=== PATIENT | male | born 1955 | race Caucasian/White ===

== ENCOUNTER 2017-03-31 18:27 | Emergency (ER) | payer MEDICAID ==
[~2017-03-31] VITALS: Ht 177.8 cm; Wt 90.7 kg
[2017-03-31 18:36] VITALS: BP 123/83
== END 2017-03-31 20:27 | disposition left against medical advice (07) ==
LOC: EDBD 18:27 → ER 18:29
DX: R07.9 Chest pain, unspecified (principal); Z53.21 Procedure and treatment not carried out due to patient leaving prior to being seen by health care provider
CPT/HCPCS: 93005

== ENCOUNTER 2023-11-21 18:01 | Emergency (ER) | payer MEDICAID, OTHER ==
[~2023-11-21] VITALS: Ht 175.3 cm; Wt 78.0 kg
[2023-11-21 18:30] VITALS: PULSE 85; RESP 28; TEMP 97.8; O2SAT 98
[2023-11-21] MEDS: MORPHINE SULFATE 4 MG/ML SYR/VIAL IV ONE (19:03)
[2023-11-21] MEDS: FAMOTIDINE (10MG/ML) 2ML VL IV ONE (19:43)
[2023-11-21] MEDS: SODIUM CHLORIDE 0.9% 1,000 ML IV ONE (19:43)
[2023-11-21] MEDS: ONDANSETRON HCL 4 MG/2 ML VIAL IV ONE (19:44)
[2023-11-21 19:47] LABS: Basophils # (auto) 0 10 ^3/uL (0-0.2); Basophils % (auto) 0.1 % (0.0-2.0); Eosinophils # (auto) 0 10 ^3/uL (0-0.8); Hemoglobin 14.7 g/dL (13.5-17.5); Lymphocytes % (auto) 9.3 % (10.0-50.0); Mean Corpuscular Hemoglobin 31.3 pg (28.0-32.0); Mean Corpuscular Hgb Conc. 33.4 g/dL (32.0-36.0); Mean Corpuscular Volume 93.7 fL (80.0-100.0); Monocytes # (auto) 0.4 10 ^3/uL (0-1.3); Monocytes % (auto) 3.8 % (0.0-12.0); Neutrophils # (auto) 9.1 10 ^3/uL (1.6-8.6); Neutrophils % (auto) 86.8 % (37.0-80.0); Platelet Count (auto) 237 10^3/uL (140-450); Red Blood Cells 4.69 10^6/uL (4.5-5.90); Red Cell Distribution Width 14.9 % (11.8-14.3); White Blood Cell 10.5 10^3/uL (4.4-10.8)
[2023-11-21 20:04] LABS: Alanine Aminotransferase 20 U/L (7-40); Albumin 4.8 g/dL (3.2-4.8); Alkaline Phosphatase 58 U/L (46-116); Anion Gap 10 (5-15); Aspartate Aminotransferase 16 U/L (13-40); BUN/Creatinine Ratio 14.5 (10.0-20.0); Blood Urea Nitrogen 19 mg/dL (9-23); Calcium 10.9 mg/dL (8.7-10.4); Carbon Dioxide 27 mmol/L (20-30); Chloride 107 mmol/L (98-107); Glucose 208 mg/dL (74-106); Potassium 4.3 mmol/L (3.5-5.1); Sodium 144 mmol/L (136-145)
[2023-11-21 20:05] LABS: Bilirubin, Total 0.6 mg/dL (0.2-1.0); Total Protein 6.8 g/dL (5.7-8.2)
[2023-11-21 21:01] VITALS: PULSE 88; RESP 20; O2SAT 94
[2023-11-21] MEDS: IOHEXOL 300 MG/ML 100ML BOTTLE IJ ONE (21:15)
[2023-11-21 23:35] VITALS: BP 122/63; PULSE 83; RESP 20; O2SAT 93
== END 2023-11-21 23:47 | disposition home or self-care (01) ==
LOC: ER 18:01
DX: A08.4 Viral intestinal infection, unspecified (principal); F12.10 Cannabis abuse, uncomplicated; E11.9 Type 2 diabetes mellitus without complications; E78.5 Hyperlipidemia, unspecified; I10 Essential (primary) hypertension; J45.909 Unspecified asthma, uncomplicated
CPT/HCPCS: 36415; 74177; 80053; 82962; 85025; 93005; 96361; 96374; 96375; 99285; J2270; J2405; J3490; J7030; Q9967

== ENCOUNTER 2025-02-24 08:08 | Inpatient (IN) | payer OTHER ==
[~2025-02-24] VITALS: Ht 172.7 cm; Wt 73.4 kg
[2025-02-24] MEDS: CEFEPIME 1GM/50ML 50 ML IV STA (08:28)
[2025-02-24 08:30] VITALS: PULSE 137; RESP 30; O2SAT 100
[2025-02-24] MEDS: SODIUM CHLORIDE 0.9% 1,000 ML IV ONE (08:30)
[2025-02-24] MEDS: ONDANSETRON HCL 4 MG/2 ML VIAL IV ONE (08:50)
[2025-02-24] MEDS: ONDANSETRON HCL 4 MG/2 ML VIAL ONE (08:51)
--- NOTE | 2025-02-24 09:14 | DVH ---
CLINICAL HISTORY: cp TECHNIQUE: Single view of the chest was obtained. COMPARISON: None FINDINGS: The heart size and pulmonary vasculature are normal. There is a band of left basilar atelectasis. There are midline sternotomy wires and a left atrial closure device. Evaluation is limited, given the right costophrenic angle likely submitted on this study. IMPRESSION: NO ACUTE CARDIOPULMONARY PROCESS.
[2025-02-24 09:22] LABS: Hematocrit 43.2 % (41.0-53.0); Hemoglobin 14.3 g/dL (13.5-17.5); Mean Corpuscular Hemoglobin 30.9 pg (28.0-32.0); Mean Corpuscular Volume 93.5 fL (80.0-100.0); Nucleated Red Blood Cells % 0.1 %
[2025-02-24 09:34] LABS: Potassium 4.0 mmol/L (3.5-5.1); Sodium 141 mmol/L (136-145)
[2025-02-24 09:35] LABS: Anion Gap 13 (5-15)
[2025-02-24 09:36] LABS: Calcium 9.3 mg/dL (8.7-10.4)
[2025-02-24 09:37] LABS: Carbon Dioxide 18 mmol/L (20-31); Chloride 110 mmol/L (98-107); INR 1.19 (0.9-1.15); Partial Thromboplastin Time 27.3 SEC (24.5-34.5); Prothrombin Time 12.4 sec (9.3-11.8)
[2025-02-24 09:40] LABS: BUN/Creatinine Ratio 8.2 (10.0-20.0)
[2025-02-24 09:44] LABS: Blood Urea Nitrogen 8 mg/dL (9-23); Glucose 175 mg/dL (74-106)
--- NOTE | 2025-02-24 10:36 | ED.PDOC ---
History of Present Illness HPI Comments 69-year-old male brought in by ambulance with a prior medical history of [place], diabetes, CAD, high lipids, hypertension: Surgical history of colonoscopy and the chief complaint of chest pain. EMS report that the patient had a urology procedure at [place] yesterday and had sudden onset of left-sided chest pain this morning associated with N/V. When patient arrived to the ER the patient was AFib RVR. Denies any other symptoms at this time. Denies chills, fever, /D, SOB. No other associated symptoms, modifiers, recent injuries or sick contacts present at this time. Chief Complaint: Chest Pain Time Seen by MD: 10:30 Primary Care Provider: HARMEET Reviewed Notes: Nurses Notes, Medications, Allergies Allergies: Coded Allergies: NO KNOWN ALLERGIES (Unverified , 08/27/15) Information Source: Patient Mode of Arrival: Ambulatory Severity: Moderate Timing: Hours Duration: Since onset, Hours Prehospital treatment: None Past Medical History PAST MEDICAL HISTORY: CAD, DM, High Lipids, HTN Surgical History (Other): Colonoscopy Family History Family History: Reviewed,noncontributory to illness, Unknown Social History Smoker: Unknown Alcohol: Unknown Drugs: Denies Drug Use, Unknown Lives In: Home Constitutional: denies: chills, diaphoresis, fatigue, fever, malaise, sweats, weakness, others EENTM: denies: blurred vision, double vision, ear bleeding, ear discharge, ear drainage, ear pain, ear ringing, eye pain, eye redness, hearing loss, mouth pain, mouth swelling, nasal discharge, nose bleeding, nose congestion, nose pain, photophobia, tearing, throat pain, throat swelling, voice changes, others Respiratory: denies: cough, hemoptysis, orthopnea, SOB at rest, shortness of breath, SOB with excertion, stridor, wheezing, others Cardiovascular: reports: chest pain; denies: dizzy spells, diaphoresis, Dyspnea on exertion, edema, irregular heart beat, left arm pain, lightheadedness, palpitations, PND, syncope, others Gastrointestinal: reports: nausea, vomiting; denies: abdomen distended, a bdominal pain, blood streaked bowels, constipated, diarrhea, dysphagia, difficulty swallowing, hematemesis, melena, poor appetite, poor fluid intake, rectal bleeding, rectal pain, others Genitourinary: denies: burning, dysuria, flank pain, frequency, hematuria, incontinence, penile discharge, penile sore, pain, testicle pain, testicle swelling, urgency, others Neurological: denies: dizziness, fainting, headache, left sided numbness, left sided weakness, numbness, paresthesia, pre-existing deficit, right sided numbness, right sided weakness, seizure, speech problems, tingling, tremors, weakness, others Musculoskeletal: denies: back pain, gout, joint pain, joint swelling, muscle pain, muscle stiffness, neck pain, others Integumetry: denies: bruises, change in color, change in hair/nails, dryness, laceration, lesions, lumps, rash, wounds, others Allergic/Immunocompromised: denies: Difficulty Healing, Frequent Infections, Hives, Itching, others Hematologic/Lymphatic: denies: anemia, blood clots, easy bleeding, easy bruising, swollen glands, others Endocrine: denies: excessive hunger, excessive sweating, excessive thirst, excessive urination, flushing, intolerance to cold, intolerance to heat, unexplained weight gain, unexplained weight loss, others Psychiatric: denies: anxiety, bipolar disorder, depression, hopeless, panic disorder, schizophrenia, sleepless, suicidal, others All Other Systems: Reviewed and Negative Physical Exam Exam Comments Tachycardic, irregular irregular General Appearance: No Apparent Distress, Normal HEENT: Normal ENT Inspection, Pharynx Normal, TMs Normal Neck: Full Range of Motion, Non-Tender, Normal, Normal Inspection Respiratory: Chest Non-Tender, Lungs Clear, No Accessory Muscle Use, No Respiratory Distress, Normal Breath Sounds Cardiovascular: No Edema, No JVD, No Murmur, No Gallop, Normal Peripheral Pulses, Regular Rate/Rhythm Breast Exam: Deferred Gastrointestinal: No Organomegaly, Non Tender, No Pulsatile Mass, Normal Bowel Sounds, Soft Genitalia: Deferred Pelvic: Deferred Rectal: Deferred Extremities: No calf tenderness, Normal capillary refill, Normal inspection, Normal range of motion, Non-tender, No pedal edema Musculoskeletal : Apperance: Normal Neurologic: Alert, pet care worker II-XII nml as Tested, No Motor Deficits, Normal Affect, Normal Mood, No Sensory Deficits Cerebellar Function: Normal Reflexes: Normal Skin: Dry, Normal Color, Warm Lymphatic: No Adenopathy Was a procedure done? Was a procedure done?: No EKG EKG : Pulse Rate (adult): [address]: Normal Cardiac Rhythm: Afib Block: None Hypertrophy: None ST: Normal Differential Dx Considerations may include: see mdm X-Ray, Labs, Meds, VS Vital Signs Date Time Temp Pulse Resp B/P (MAP) Pulse Ox O2 Delivery O2 Flow Rate FiO2 02/24/25 10:36 134 02/24/25 10:21 128 02/24/25 08:30 137 30 100 Room Air* 0 21 02/24/25 08:26 97.9 137 30 158/101 (120) 100 97.9 02/24/25 08:25 98.0 138 24 177/98 100 98.0 02/24/25 08:11 134 Lab Test 02/24/25 08:50 Range/Units White Blood Count 8.3 4.4-10.8 10^3/uL Red Blood Count 4.62 4.5-5.90 10^6/uL Hemoglobin 14.3 13.5-17.5 g/dL Hematocrit 43.2 41.0-53.0 % Mean Corpuscular Volume 93.5 80.0-100.0 fL Mean Corpuscular Hemoglobin 30.9 28.0-32.0 pg Mean Corpuscular Hemoglobin Concent 33.0 32.0-36.0 g/dL Red Cell Distribution Width 15.4 H 11.8-14.3 % Platelet Count 167 140-450 10^3/uL Mean Platelet Volume 8.5 6.9-10.8 fL Neutrophils (%) (Auto) 77.3 37.0-80.0 % Lymphocytes (%) (Auto) 18.1 10.0-50.0 % Monocytes (%) (Auto) 4.1 0.0-12.0 % Eosinophils (%) (Auto) 0.2 0.0-7.0 % Basophils (%) (Auto) 0.3 0.0-2.0 % Neutrophils # (Auto) 6.4 1.6-8.6 10 ^3/uL Lymphocytes # (Auto) 1.5 0.4-5.4 10 ^3/uL Monocytes # (Auto) 0.3 0-1.3 10 ^3/uL Eosinophils # (Auto) 0 0-0.8 10 ^3/uL Basophils # (Auto) 0 0-0.2 10 ^3/uL Nucleated Red Blood Cells 0.1 % Prothrombin Time 12.4 H 9.3-11.8 sec Prothrombin Time INR 1.19 H 0.9-1.15 Activated Partial Thromboplast Time 27.3 24.5-34.5 SEC Sodium Level 141 136-145 mmol/L Potassium Level 4.0 3.5-5.1 mmol/L Chloride Level 110 H 98-107 mmol/L Carbon Dioxide Level 18 L 20-31 mmol/L Anion Gap 13 5-15 Blood Urea Nitrogen 8 L 9-23 mg/dL Creatinine 0.97 0.700-1.30 mg/dL Glomerular Filtration Rate Calc 84 >90 mL/min BUN/Creatinine Ratio 8.2 L 10.0-20.0 Serum Glucose 175 H 74-106 mg/dL Calcium Level 9.3 8.7-10.4 mg/dL Troponin I High Sensitivity 6 </=54 ng/L B-Type Natriuretic Peptide 44.29 0-100 pg/mL Current Medications Medications (Trade) Dose Ordered Sig/Nasrin Route Start Time Stop Time Status Last Admin Sodium Chloride 1,000 ml @ 1,000 mls/hr Q1H ONCE IV 02/24/25 08:30 02/24/25 09:29 DC 02/24/25 08:30 Time of 1ST Reevaluation: 11:00 Reevaluation 1ST: Unchanged Patient Education/Counseling: Diagnosis, Treatment, Prognosis Family Education/Counseling: Diagnosis, Treatment, Prognosis SEPSIS Sepsis Screen Date sepsis recognized/suspect: Feb 24, 2025 Time Sepsis recognized/suspect: 817 Recent Procedure: No On Antibiotic Therapy: No Respiratory Rate >20: Yes Heart Rate >90: Yes Temp<36 C (96.8 F) or >38.3 C: No SBP <90 or MAP <65 mmHG: No New Acute Mental Status Change: No Is the patient on CPAP, BIPAP,: No Physician Orders Urinalysis (02/24/25 08:15) Chest Portable (02/24/25 08:15) Electrocardigram (02/24/25 08:15) Troponin-I Hs (02/24/25 09:15) Troponin-I Hs (02/24/25 11:15) Electrocardigram (02/24/25 09:15) Electrocardigram (02/24/25 11:15) Accucheck (02/24/25 08:28) Cefepime 1gm/50ml (Maxipime 1gm/50ml) (02/24/25 08:28) Notify Md If Map <65 Or Bp<90 (02/24/25 08:28) If Map<65 Start Vasopressor (02/24/25 08:28) Sepsis Reassesment After Fluid (02/24/25 09:28) Amiodarone 450mg/250ml Ae (Cordarone) (02/24/25 10:45) Amiodarone 450mg/250ml Ae (Cordarone) (02/24/25 18:16) Vital Signs Date Time Temp Pulse Resp B/P (MAP) Pulse Ox O2 Delivery O2 Flow Rate FiO2 02/24/25 10:36 134 02/24/25 10:21 128 02/24/25 08:30 137 30 100 Room Air* 0 21 02/24/25 08:26 97.9 137 30 158/101 (120) 100 97.9 02/24/25 08:25 98.0 138 24 177/98 100 98.0 02/24/25 08:11 134 Laboratory Tests Test 02/24/25 08:50 White Blood Count 8.3 10^3/uL (4.4-10.8) Medications Medications Dose Ordered Sig/Nasrin Route Start Time Stop Time Status Last Admin Dose Admin Sodium Chloride 1,000 ml @ 1,000 mls/hr Q1H ONCE IV 02/24/25 08:30 02/24/25 09:29 DC 02/24/25 08:30 Departure 1 Departure Time of Disposition: 10:48 (MEDICAL DECISION MAKING (HIGH COMPLEXITY [id number]):The patient presents with acute severe chest pain and an EKG showing atrial fibrillation with rapid ventricular response (RVR). This represents an acute, potentially life-threatening cardiac dysrhythmia requiring immediate intervention.Data Reviewed / Independent Interpretation:I independently reviewed all laboratory studies, including CBC, BMP, and cardiac biomarkers, all of which were within normal limits. A normal troponin does not exclude ischemia in the setting of ongoing symptoms and uncontrolled RVR. I independently interpreted the chest X-ray, which shows no acute cardiopulmonary disease. The EKG was independently interpreted and confirms Afib with RVR with no acute ischemic ST- segment changes, but symptoms remain highly concerning given the hemodynamic impact of the arrhythmia.Assessment, Differential & Management:The differential diagnosis includes: atrial fibrillation with RVR, ACS/unstable angina, demand ischemia, myocarditis, pericarditis, heart failure exacerbation, pulmonary emb olism, and other causes of tachydysrhythmia.Given the presence of Afib with RVR and severe chest discomfort, immediate rate control measures were initiated. The patient required IV amiodarone loading and infusion due to persistent tachycardia and the need for a rhythm-control strategy in the setting of severe symptoms. The patient required continuous cardiac monitoring, serial reas sessments, and close hemodynamic evaluation.Despite treatment, the patient continues to demonstrate clinical instability, with ongoing severe symptoms and risk of rapid deterioration. Due to his condition, the patient is not currently stable for transfer to an outside facility. Continued monitoring and possible escalation of therapyincluding cardioversion if deterioration occurswere considered.The clinical picture represents an acute illness posing an immediate threat to life or major bodily function. Admission to a higher level of care is required for continued IV antiarrhythmic management, serial cardiac evaluation, and monitoring for decompensation. I discussed the case with the receiving inpatient service and coordinated ongoing care.CRITICAL CARE TIME: 39 MINUTESA total of 39 minutes of critical care time was provided, exclusive of separately billable procedures. Critical care was necessary due to the high risk of cardiovascular collapse, malignant arrhythmia, acute ischemia, and hemodynamic deterioration from Afib with RVR.Critical care activities included:Continuous cardiac monitoring and bedside reassessmentsInterpretation of EKG and chest X-rayIndependent review of labsInitiation and titration of IV amiodarone dripFormulation of rate/rhythm control strategyEvaluation for potential cardioversionSerial hemodynamic assessmentsCoordination with nursing staff and inpatient receiving teamOngoing high-intensity medical decision makingThe patient had a high likelihood of sudden and clinically significant d eterioration requiring urgent intervention, warranting critical care.) Impression: Primary Impression: Atrial fibrillation with RVR Additional Impression: Chest pain Disposition: ADMITTED INPATIENT Admit to: [facility] Condition: Guarded Critical Care Note Critical Care Time?: Yes Stability Stability form required: No Heart Score Heart Score: Heart Score Response (Comments) Value History Moderate Suspicious 1 EKG Repolarization Disturb 1 Age >65 2 Risk Factors >3 or Hx ASHD 2 Troponin 1-2 x's Normal limit 1 Total 7 I personally scribed for SHAVON DENNEY MD ([email or web address]) on 02/24/25 at 10:36. Electronically submitted by Lane Bowman ([email or web address]). I personally scribed for SHAVON DENNEY MD ([email or web address]) on 02/24/25 at 10:37. Electronically submitted by Lane Bowman ([email or web address]). SHAVON DENNEY MD Feb 24, 2025 10:36
[2025-02-24] MEDS: AMIODARONE BOLUS KIT 100 ML IV ONE (11:08)
[2025-02-24 12:08] LABS: Urine Budding Yeast OCCASIONAL /hpf (None Seen); Urine Protein, UAD 2+ (Negative)
[2025-02-24] MEDS ORDERED: DOCUSATE SOD 100 MG CAP PO PRN (12:30)
[2025-02-24] MEDS ORDERED: ACETAMINOPHEN 325 MG TAB PO PRN (12:30)
[2025-02-24] MEDS ORDERED: HYDROcodone-ACET 5/325MG TAB PO PRN (12:30)
[2025-02-24] MEDS ORDERED: MORPHINE SULFATE INJ 2 MG/ml SYRG IV PRN (12:30)
[2025-02-24] MEDS ORDERED: NITROGLYCERIN 0.4 MG SL TAB SL PRN (12:30)
[2025-02-24] MEDS ORDERED: HYDROmorphone HCL 2 MG/ML VL/or syr IV PRN (12:30)
--- NOTE | 2025-02-24 12:31 | DVHHP2 ---
Admitting Diagnosis: Chest pain History of Present Illness 69-year-old male brought in by ambulance with a prior medical history of [place] [employer] [employer] [place], diabetes, CAD, high lipids, hypertension: Surgical history of colonoscopy and the chief complaint of chest pain. EMS report that the patient had a urology procedure at [place] yesterday and had sudden onset of left-sided chest pain this morning associated with N/V. When patient arrived to the ER the patient was AFib RVR. Denies any other symptoms at this time. Denies chills, fever, /D, SOB. No other associated symptoms, modifiers, recent injuries or sick contacts present at this time. PAST MEDICAL HISTORY: CAD, DM, High Lipids, HTN Surgical History (Other): Colonoscopy Family History Family History: Reviewed,noncontributory to illness, Unknown Social History Smoker: Unknown Alcohol: Unknown Drugs: Denies Drug Use, Unknown Lives In: Home Allergies: Coded Allergies: NO KNOWN ALLERGIES (Unverified , 08/27/15) Current Medications Current Medications Medications (Trade) Dose Ordered Sig/Nasrin Route PRN Reason Start Time Stop Time Status Last Admin Cefepime HCl 50 ml @ 12.5 mls/hr ONCE STAT IV 02/24/25 08:28 02/24/25 12:27 DC Amiodarone HCl 250 ml @ 16.66 mls/ hr Q15H1M IV 02/24/25 18:16 Cefepime HCl 50 ml @ 50 mls/hr BID IV 02/24/25 22:00 UNV Docusate Sodium (Colace Capsule) 100 mg BIDPRN PRN PO FOR CONSTIPATION 02/24/25 12:30 UNV Acetaminophen (Tylenol Tablet) 650 mg Q6HP PRN PO PAIN SCALE 1-3 OR TEMP>100.4 02/24/25 12:30 UNV Acetaminophen/ Hydrocodone Bitart ([place] 5/325MG Tab) 1 tab Q4HP PRN PO MODERATE PAIN (4-6 PAIN SCALE) 02/24/25 12:30 UNV Hydromorphone HCl (Dilaudid Injection) 0.5 mg Q4HP PRN IV SEVERE PAIN (7-10 PAIN SCALE) 02/24/25 12:30 UNV Ondansetron HCl (Zofran) 4 mg Q4HP PRN IV NAUSEA / VOMITING 02/24/25 12:30 UNV Nitroglycerin (Ntrostat Sublingual) 0.4 mg Q5MINP PRN SL FOR CHEST PAIN 02/24/25 12:30 UNV Morphine Sulfate 2 mg Q30M PRN IV FOR CHEST PAIN 02/24/25 12:30 UNV Heparin Sodium/ Dextrose 250 ml @ 8.64 mls/hr Q24H IV 02/24/25 12:45 UNV Vital Signs Vital Signs Date Time Temp Pulse Resp B/P (MAP) Pulse Ox O2 Delivery O2 Flow Rate FiO2 02/24/25 10:36 134 02/24/25 08:30 30 100 Room Air* 0 21 02/24/25 08:26 97.9 158/101 (120) 97.9 Physical Exam Generally-69 years old male, well known rate and rhythm well developed. No apparent distress HEENT-atraumatic, normocephalic Heart-irregularly irregular Lungs clear to auscultate abdomen soft nontender nondistended Musculoskeletal-no edema cyanosis Neuro-AO x3, no focal deficits SEPSIS Sepsis Screen Date sepsis recognized/suspect: Feb 24, 2025 Time Sepsis recognized/suspect: 817 Recent Procedure: No On Antibiotic Therapy: No Respiratory Rate >20: Yes Heart Rate >90: Yes Temp<36 C (96.8 F) or >38.3 C: No SBP <90 or MAP <65 mmHG: No New Acute Mental Status Change: No Is the patient on CPAP, BIPAP,: No Physician Orders Chest Portable (02/24/25 08:15) Electrocardigram (02/24/25 08:15) Troponin-I Hs (02/24/25 11:15) Electrocardigram (02/24/25 09:15) Electrocardigram (02/24/25 11:15) Accucheck (02/24/25 08:28) Notify Md If Map <65 Or Bp<90 (02/24/25 08:28) If Map<65 Start Vasopressor (02/24/25 08:28) Sepsis Reassesment After Fluid (02/24/25 09:28) Amiodarone 450mg/250ml Ae (Cordarone) (02/24/25 10:45) Amiodarone 450mg/250ml Ae (Cordarone) (02/24/25 18:16) Cefepime 2gm/50ml Ns (Maxipime 2gm/50ml) (02/24/25 22:00) Echo 2d Mode Cardiac Dop (02/24/25 12:28) Admit (02/24/25 12:) Code Status (02/24/25:) Vital Signs .PER UNIT PROTOCOL (02/24/25:) Review Orders With Adm. (02/24/25 12:28) Encourage Activity As Tolerate (02/24/25 12:) Docusate Sodium Capsule (Colace Capsule) (02/24/25 12:30) Acetaminophen Tablet (Tylenol Tablet) (02/24/25 12:30) Notify Md Of Changes From Base (02/24/25 12:) Advance Directive (02/24/25:) Patient Condition (02/24/25:) Allergies (02/24/25:) Hydrocodone-Acet 5/325mg Tab ([place] 5/32 (02/24/25 12:30) Hydromorphone Injection (Dilaudid Inject (02/24/25 12:30) Ondansetron Hcl (Zofran) (02/24/25 12:30) Nitroglycerin Sublingual (Ntrostat Subli (02/24/25 12:30) Morphine Sulfate Injection (02/24/25 12:30) Stat Ekg For Chest Pain (02/24/25:) Notify Md Of Changes From Base (02/24/25 12:) Advertising Analyst For 24 Hours (02/24/25 12:28) Emergency Dysrhythmia Protocol (02/24/25 12:) Rhythm Strips Once Every Shift (02/24/25:) Oxygen By Nasal Cannula (02/24/25:) Thyroid Stimulating Hormone (02/24/25:) Free T4 (Free Thyroxine) (02/24/25 12:) * Cardiology Consult (02/24/25 12:) Platelet Monitoring (02/24/25:) Heparin Per Standardized Proce (02/24/25 12:32) Discontinue All Im Injections (02/24/25 12:32) PTPTT (02/24/25 12:32) Complete Blood Count (02/24/25 12:32) Heparin Sodium (Porcine) (02/24/25 12:45) Heparin Drip/D5w 100units/Ml (02/24/25 12:45) Complete Blood Count (02/25/25 05:00) Complete Blood Count (02/26/25 05:00) Complete Blood Count (02/27/25 05:00) Complete Blood Count (02/28/25 05:00) Complete Blood Count (03/01/25 05:00) Comprehensive Metabolic Panel (02/25/25 05:00) Comprehensive Metabolic Panel (02/26/25 05:00) Comprehensive Metabolic Panel (02/27/25 05:00) Comprehensive Metabolic Panel (02/28/25 05:00) Comprehensive Metabolic Panel (03/01/25 05:00) Vital Signs Date Time Temp Pulse Resp B/P (MAP) Pulse Ox O2 Delivery O2 Flow Rate FiO2 02/24/25 10:36 134 02/24/25 10:21 128 02/24/25 08:30 137 30 100 Room Air* 0 21 02/24/25 08:26 97.9 137 30 158/101 (120) 100 97.9 02/24/25 08:25 98.0 138 24 177/98 100 98.0 02/24/25 08:11 134 Laboratory Tests Test 02/24/25 08:50 White Blood Count 8.3 10^3/uL (4.4-10.8) Medications Medications Dose Ordered Sig/Nasrin Route Start Time Stop Time Status Last Admin Dose Admin Amiodarone HCl 100 ml @ 600 mls/hr ONCE ONCE IV 02/24/25 10:30 02/24/25 10:39 DC 02/24/25 11:08 Amiodarone HCl 250 ml @ 33.33 mls/ hr Q7H31M ONCE IV 02/24/25 10:45 02/24/25 18:15 02/24/25 11:18 Ondansetron HCl 4 mg ONCE ONCE IV 02/24/25 08:50 02/24/25 09:05 DC 02/24/25 08:50 Sodium Chloride 1,000 ml @ 1,000 mls/hr Q1H ONCE IV 02/24/25 08:30 02/24/25 09:29 DC 02/24/25 08:30 Results Labs Test 02/24/25 11:13 02/24/25 11:03 11/15/25 08:50 Range/Units Urine Color Yellow Yellow Urine Clarity Turbid H Clear Urine pH 6.0 5.0-9.0 Urine Specific [place] 1.022 1.001-1.035 Urine Protein 2+ H Negative Urine Ketones Negative Negative Urine Blood 3+ H Negative /uL Urine Nitrite Negative Negative Urine Bilirubin Negative Negative Urine Urobilinogen Normal Negative mg/dL Urine Leukocyte Esterase 2+ Negative /uL Urine RBC 1044 0 - 3 /hpf Urine Microscopic WBC 75 H 0-3 /HPF Urine Squamous Epithelial Cells Few <5 /hpf Urine Bacteria Few H None Seen /hpf Urine Yeast (Budding) Occasional None Seen /hpf Urine Glucose 2+ H Normal mg/dL Troponin I High Sensitivity 6 </=54 ng/L White Blood Count 8.3 4.4-10.8 10^3/uL Red Blood Count 4.62 4.5-5.90 10^6/uL Hemoglobin 14.3 13.5-17.5 g/dL Hematocrit 43.2 41.0-53.0 % Mean Corpuscular Volume 93.5 80.0-100.0 fL Mean Corpuscular Hemoglobin 30.9 28.0-32.0 pg Mean Corpuscular Hemoglobin Concent 33.0 32.0-36.0 g/dL Red Cell Distribution Width 15.4 H 11.8-14.3 % Platelet Count 167 140-450 10^3/uL Mean Platelet Volume 8.5 6.9-10.8 fL Neutrophils (%) (Auto) 77.3 37.0-80.0 % Lymphocytes (%) (Auto) 18.1 10.0-50.0 % Monocytes (%) (Auto) 4.1 0.0-12.0 % Eosinophils (%) (Auto) 0.2 0.0-7.0 % Basophils (%) (Auto) 0.3 0.0-2.0 % Neutrophils # (Auto) 6.4 1.6-8.6 10 ^3/uL Lymphocytes # (Auto) 1.5 0.4-5.4 10 ^3/uL Monocytes # (Auto) 0.3 0-1.3 10 ^3/uL Eosinophils # (Auto) 0 0-0.8 10 ^3/uL Basophils # (Auto) 0 0-0.2 10 ^3/uL Nucleated Red Blood Cells 0.1 % Prothrombin Time 12.4 H 9.3-11.8 sec Prothrombin Time INR 1.19 H 0.9-1.15 Activated Partial Thromboplast Time 27.3 24.5-34.5 SEC Sodium Level 141 136-145 mmol/L Potassium Level 4.0 3.5-5.1 mmol/L Chloride Level 110 H 98-107 mmol/L Carbon Dioxide Level 18 L 20-31 mmol/L Anion Gap 13 5-15 Blood Urea Nitrogen 8 L 9-23 mg/dL Creatinine 0.97 0.700-1.30 mg/dL Glomerular Filtration Rate Calc 84 >90 mL/min BUN/Creatinine Ratio 8.2 L 10.0-20.0 Serum Glucose 175 H 74-106 mg/dL Calcium Level 9.3 8.7-10.4 mg/dL B-Type Natriuretic Peptide 44.29 0-100 pg/mL Primary Diagnosis AFib with RVR Chest pain Plan UA shows AFib with RVR Take patient to Coumadin. Patient has held Coumadin due to surgery and restarted last night. Starting heparin drip to bridge Coumadin UA positive Cefepime 2 g b.i.d. Check urine culture Check TSH, T4 Amiodarone drip in ED Check echo of the heart Cardiology consult Pain control Resume home meds IV fluids Cardiac diet No GI prophylaxis needed Full code Plan discussed with: Patient Problems List: (1) Atrial fibrillation with RVR Status: Acute (2) Chest pain Status: Acute Date of Service: Feb 24, 2025 Billing Provider: ROBERT LEMUS MD Common Visit Codes: [id number] INP/OBS CARE (HIGH) ROBERT LEMUS MD Feb 24, 2025 12:31
[2025-02-24 14:02] LABS: INR 1.32 (0.9-1.15); Partial Thromboplastin Time 27.1 SEC (24.5-34.5); Prothrombin Time 13.6 sec (9.3-11.8)
[2025-02-24] MEDS: HEPARIN SODIUM (PORCINE) 5000 UNITS/ML 1ML VIAL IV ONE (14:35)
--- NOTE | 2025-02-24 14:46 | ECG ---
[facility] Test Date: 2025-02-24 Test Time: 14:43:30 Pat Name: BAYLEE WHITNEY Department: Room: [address] [place] [address] A Gender: M General Practitioner: NATHALIE : 1955 Requested By: SHAVON DENNEY Order Number: [id number] Reading MD: Lexx Woody Measurements Intervals [place] Rate: 132 P: 0 NM: 0 QRS: 21 QRSD: 92 T: 136 QT: 326 QTc: 483 Interpretive Statements Atrial flutter with predominant 2:1 AV block Low voltage, extremity leads Repol abnrm suggests ischemia, anterolateral Electronically Signed On 02-27-2025 17:51:58 PST by Lexx Woody Please click the below link to view image of tracing.
[2025-02-24 14:59] LABS: Hematocrit 38.2 % (41.0-53.0); Hemoglobin 12.8 g/dL (13.5-17.5); Mean Corpuscular Hemoglobin 31.1 pg (28.0-32.0); Mean Corpuscular Volume 92.6 fL (80.0-100.0); Nucleated Red Blood Cells % 0.0 %
[2025-02-24] MEDS: HEPARIN DRIP/D5W 100UNITS/ML 250 ML IV SCH ×2 (15:00→23:30)
[2025-02-24] MEDS: ONDANSETRON HCL 4 MG/2 ML VIAL IV PRN (16:32)
[2025-02-24] MEDS: PANTOPRAZOLE 40 MG/10 ML VIAL INJ IV ONE (16:33)
--- NOTE | 2025-02-24 17:51 | CONS ---
Pharmacy Clinical Information: HEPARIN RATE AT 9 ML/HR L. NEXT APTT ON 02/24 AT 2100. CARMEN CRAVEN CONFIRMED AND READ BACK CAM NUNN PHARMACIST Feb 24, 2025 17:50
[2025-02-24] MEDS: WARFARIN SODIUM 2 MG TAB PO ONE (18:49)
[2025-02-24 19:00] VITALS: PULSE 129; RESP 16; O2SAT 95
--- NOTE | 2025-02-24 19:39 | ECG ---
[facility] Test Date: 2025-02-24 Test Time: 08:11:21 Pat Name: BAYLEE WHITNEY Department: ER Room: [address] [place] [address] A Gender: M Chemic Mangler: BRANDON : 1955 Requested By: SHAVON DENNEY Order Number: [id number] Reading MD: Lexx Woody Measurements Intervals [place] Rate: 134 P: 0 AK: 0 QRS: 259 QRSD: 97 T: 67 QT: 303 QTc: 453 Interpretive Statements Atrial flutter Left anterior fascicular block Low voltage, extremity leads Abnormal R-wave progression, late transition Nonspecific T abnormalities, lateral leads Electronically Signed On 02-27-2025 17:49:58 PST by Lexx Woody Please click the below link to view image of tracing.
[2025-02-24] MEDS: CEFEPIME 2GM/50ML NS 50 ML IV SCH (22:00)
[2025-02-24 23:03] LABS: INR 1.55 (0.9-1.15); Partial Thromboplastin Time 41.6 SEC (24.5-34.5); Prothrombin Time 15.7 sec (9.3-11.8)
[2025-02-24] MEDS: MELATONIN 5 MG TAB ONE (23:18)
[2025-02-24] MEDS: MELATONIN 5 MG TAB PO ONE (23:24)
[2025-02-25] VITALS (7 sets, daily range): BP systolic 115–139; BP diastolic 60–101; PULSE 86–117; RESP 15–21; TEMP 97.8–98.1; O2SAT 91–98
[2025-02-25 05:02] LABS: Hematocrit 36.6 % (41.0-53.0); Hemoglobin 12.4 g/dL (13.5-17.5); Mean Corpuscular Hemoglobin 31.1 pg (28.0-32.0); Mean Corpuscular Volume 91.8 fL (80.0-100.0); Nucleated Red Blood Cells % 0.0 %
[2025-02-25 05:28] LABS: Alanine Aminotransferase 17 U/L (7-40); Albumin 4.1 g/dL (3.2-4.8); Anion Gap 8 (5-15); BUN/Creatinine Ratio 8.3 (10.0-20.0); Bilirubin, Total 1.1 mg/dL (0.2-1.0); Calcium 8.8 mg/dL (8.7-10.4); Carbon Dioxide 24 mmol/L (20-31); Potassium 4.1 mmol/L (3.5-5.1); Sodium 140 mmol/L (136-145); Total Protein 6.5 g/dL (5.7-8.2)
[2025-02-25 05:31] LABS: Alkaline Phosphatase 43 U/L (46-116); Blood Urea Nitrogen 7 mg/dL (9-23); Chloride 108 mmol/L (98-107); Glucose 115 mg/dL (74-106)
[2025-02-25] MEDS: METOPROLOL TARTRATE 50 MG TAB PO SCH (10:47)
[2025-02-25 11:43] LABS: INR 1.86 (0.9-1.15); Partial Thromboplastin Time 54.7 SEC (24.5-34.5); Prothrombin Time 18.5 sec (9.3-11.8)
--- NOTE | 2025-02-25 12:05 | DVHINCON2 ---
Date Seen: Feb 25, 2025 Referring Physician Brian Reason for Consultation Atrial Fibrillation with RVR History of Present Illness 69-year-old male with PMH for diabetes, CAD, HLD, HTN, atrial fibrillation on warfarin, aortic valve replacement bioprosthetic 2013, bladder cancer presents to the hospital with chest pressure, palpitations. Patient recently underwent cystoscopy for bladder cancer though needed to have a 2nd procedure done. Patient has been off his warfarin for 5 days prior. During procedure patient had increased chest pressure noted his heart rate to be significantly elevated having some palpitations. Patient found to be in RVR and was transferred to the hospital. EKG reviewed and shows atrial flutter at 134 beats per minute, INR initially 1.19, now 1.86 this morning. Troponin negative x3. Normal BNP. Past Medical History As stated above Past Surgical History Aortic valve replacement with bioprosthetic [employer] valve 25 mm model 3300 TFX Social History Denies tobacco, alcohol or illicit drug use Allergies: Coded Allergies: NO KNOWN ALLERGIES (Unverified , 08/27/15) Current Medications Current Medications Medications (Trade) Dose Ordered Sig/Nasrin Route PRN Reason Start Time Stop Time Status Last Admin Amiodarone HCl 250 ml @ 16.66 mls/ hr Q15H1M IV 02/24/25 18:16 02/25/25 09:30 Cefepime HCl 50 ml @ 50 mls/hr BID IV 02/24/25 22:00 02/25/25 10:47 Docusate Sodium (Colace Capsule) 100 mg BIDPRN PRN PO FOR CONSTIPATION 02/24/25 12:30 Acetaminophen (Tylenol Tablet) 650 mg Q6HP PRN PO PAIN SCALE 1-3 OR TEMP>100.4 02/24/25 12:30 Acetaminophen/ Hydrocodone Bitart ([place] 5/325MG Tab) 1 tab Q4HP PRN PO MODERATE PAIN (4-6 PAIN SCALE) 02/24/25 12:30 Hydromorphone HCl (Dilaudid Injection) 0.5 mg Q4HP PRN IV SEVERE PAIN (7-10 PAIN SCALE) 02/24/25 12:30 Ondansetron HCl (Zofran) 4 mg Q4HP PRN IV NAUSEA / VOMITING 02/24/25 12:30 02/24/25 16:32 Nitroglycerin (Ntrostat Sublingual) 0.4 mg Q5MINP PRN SL FOR CHEST PAIN 02/24/25 12:30 Morphine Sulfate 2 mg Q30M PRN IV FOR CHEST PAIN 02/24/25 12:30 Heparin Sodium/ Dextrose 250 ml @ 9 mls/hr Q24H IV 02/24/25 12:45 02/24/25 23:21 DC 02/24/25 15:00 Warfarin Sodium (Coumadin Per Rx Protocol) RX PROTOCOL PER PHARMACY PO 02/24/25 14:00 Heparin Sodium/ Dextrose 250 ml @ 11 mls/hr [id number] IV 02/24/25 23:30 02/24/25 23:30 Metoprolol Tartrate (Lopressor Tablet) 100 mg BID PO 02/25/25 10:00 02/25/25 10:47 Review of Systems Constitutional: No: Fever, Chills, Sweats, Weakness, Malaise, Other Eyes: No: Pain, Vision change, Conjunctivae inflammation, Eyelid inflammation, Other, Redness ENT: No: Ear pain, Ear discharge, Nose pain, Nose discharge, Nose congestion, Mouth pain, Mouth swelling, Throat pain, Throat swelling, Other Respiratory: No: Cough, Dry, Shortness of breath, SOB with exertion, Wheezing, Hemoptysis, Pleuritic Pain, Sputum, Wheezing, Other Cardiovascular: ; No: Chest Pain Palpitations, Orthopnea, Paroxysmal Noc. Dyspnea, Edema, Lt Headedness, Other Gastrointestinal: No: Nausea, Vomiting, Abdominal Pain, Diarrhea, Constipation, Melena, Hematochezia, Other Genitourinary: No Dysuria, No Frequency, No Incontinence, No Hematuria, No Retention, No Other Musculoskeletal: neck pain; No: other, shoulder pain, arm pain, back pain, hand pain, leg pain, foot pain Skin: No: Rash, Lesions, Jaundice, Bruising, Other Neurological: Other (Dizziness, headache.); No: Weakness, Numbness, Incoordination, Change in speech, Confusion, Seizures Vital Signs Vital Signs Date Time Temp Pulse Resp B/P (MAP) Pulse Ox O2 Delivery O2 Flow Rate FiO2 02/25/25 10:47 116 130/89 02/25/25 08:57 Room Air* 0 21 02/25/25 08:30 14 96 02/25/25 07:30 97.8 97.8 Physical Exam General appearance: Patient is well-developed, well-nourished, in no acute distress. HEENT: Exam shows: Normocephalic, atraumatic, PERRLA, EOMI Neck: Supple, no bruits Chest: Equal chest excursion bilaterally. Breath sounds normal-no rales or wheezes. Heart: Rhythm: Irregular rate; no murmur or gallop Abdomen: Exam shows: Soft, nontender, nondistended Musculoskeletal: No clubbing, no cyanosis, no lower extremity edema Dermatology: Skin warm, moist. Neurological: Exam shows: Alert and oriented x4, normal speech Available prior records, labs, EKG, rhythm strips reviewed and interpreted Labs/Diagnostic Data Labs Test 02/25/25 10:48 02/25/25 04:38 02/24/25 13:18 02/24/25 11:13 Range/Units Prothrombin Time 18.5 H 9.3-11.8 sec Prothrombin Time INR 1.86 H 0.9-1.15 Activated Partial Thromboplast Time 54.7 H 24.5-34.5 SEC White Blood Count 7.4 4.4-10.8 10^3/uL Red Blood Count 3.99 L 4.5-5.90 10^6/uL Hemoglobin 12.4 L 13.5-17.5 g/dL Hematocrit 36.6 L 41.0-53.0 % Mean Corpuscular Volume 91.8 80.0-100.0 fL Mean Corpuscular Hemoglobin 31.1 28.0-32.0 pg Mean Corpuscular Hemoglobin Concent 33.9 32.0-36.0 g/dL Red Cell Distribution Width 15.3 H 11.8-14.3 % Platelet Count 167 140-450 10^3/uL Mean Platelet Volume 8.6 6.9-10.8 fL Neutrophils (%) (Auto) 74.9 37.0-80.0 % Lymphocytes (%) (Auto) 21.9 10.0-50.0 % Monocytes (%) (Auto) 2.2 0.0-12.0 % Eosinophils (%) (Auto) 0.3 0.0-7.0 % Basophils (%) (Auto) 0.7 0.0-2.0 % Neutrophils # (Auto) 5.5 1.6-8.6 10 ^3/uL Lymphocytes # (Auto) 1.6 0.4-5.4 10 ^3/uL Monocytes # (Auto) 0.2 0-1.3 10 ^3/uL Eosinophils # (Auto) 0 0-0.8 10 ^3/uL Basophils # (Auto) 0.1 0-0.2 10 ^3/uL Nucleated Red Blood Cells 0.0 % Sodium Level 140 136-145 mmol/L Potassium Level 4.1 3.5-5.1 mmol/L Chloride Level 108 H 98-107 mmol/L Carbon Dioxide Level 24 20-31 mmol/L Anion Gap 8 5-15 Blood Urea Nitrogen 7 L 9-23 mg/dL Creatinine 0.84 0.700-1.30 mg/dL Glomerular Filtration Rate Calc 94 >90 mL/min BUN/Creatinine Ratio 8.3 L 10.0-20.0 Serum Glucose 115 H 74-106 mg/dL Calcium Level 8.8 8.7-10.4 mg/dL Magnesium Level 2.0 1.6-2.6 mg/dL Total Bilirubin 1.1 H 0.2-1.0 mg/dL Aspartate Amino Transferase (AST) 29 13-40 U/L Alanine Aminotransferase (ALT) 17 7-40 U/L Alkaline Phosphatase 43 L 46-116 U/L Total Protein 6.5 5.7-8.2 g/dL Albumin 4.1 3.2-4.8 g/dL Troponin I High Sensitivity 6 </=54 ng/L Thyroid Stimulating Hormone (TSH) 0.74 0.55-4.78 uIU/mL Urine Color Yellow Yellow Urine Clarity Turbid H Clear Urine pH 6.0 5.0-9.0 Urine Specific [place] 1.022 1.001-1.035 Urine Protein 2+ H Negative Urine Ketones Negative Negative Urine Blood 3+ H Negative /uL Urine Nitrite Negative Negative Urine Bilirubin Negative Negative Urine Urobilinogen Normal Negative mg/dL Urine Leukocyte Esterase 2+ Negative /uL Urine RBC 1044 0 - 3 /hpf Urine Microscopic WBC 75 H 0-3 /HPF Urine Squamous Epithelial Cells Few <5 /hpf Urine Bacteria Few H None Seen /hpf Urine Yeast (Budding) Occasional None Seen /hpf Urine Glucose 2+ H Normal mg/dL Test 02/24/25 08:50 Range/Units B-Type Natriuretic Peptide 44.29 0-100 pg/mL Assessment * Atrial fibrillation/flutter with episode of RVR - on amiodarone drip. Continue metoprolol 100 mg p.o. twice daily. On warfarin for stroke prophylaxis, bridge with heparin drip. INR 1.86. * Chest pain/pressure - likely in setting of palpitations. AFib RVR. Troponins negative x3. Echocardiogram pending. EKG negative for acute ischemic changes. Patient would like to continue with outpatient workup at [facility] for which has upcoming appointment with Cardiology. * HTN - resumed on metoprolol. Continue trending. * HX aortic valve replacement - follow up echo. Case Discussed with Dr Lnua. Continue with amiodarone, metoprolol resumed. Continue with rate control. Follow up echo if no significant abnormalities continue with outpatient cardiology follow up per patient request. Continue warfarin currently on heparin for bridge. INR 1.86. Monitor for bleeding given recent cystoscopy for bladder CA. Critical care, time spent: 48 minutes This medical document was created using an electronic medical record system with voice recognition software and computerized dictation system. Although this document has been carefully reviewed, there might still be some phonetic and typographical errors. Occasional wrong-word or ``sound-alike substitutions may have occurred due to the inherent limitations of voice recognition software. These areas are purely typographical due to imperfections of the software programs and do not reflect any compromise in the patient's medical care. Please read the chart carefully and recognize, using context, where these substitutions have occurred. Thank you for allowing me to participate in the management of this patient. The treatment plan was discussed with and agreed upon by patient/family including requesting consultants and ordering of imaging/procedures. Plan discussed with: Patient NYHA Physical activity limitations: Class2(Slight)fatigue,sob Date of Service: Feb 25, 2025 Billing Provider: RICARDO GAMBLE Cardiology Common Codes: [id number] INP/OBS CARE (High), [id number] CA RE 30-74 MIN RICARDO GAMBLE Feb 25, 2025 12:05
--- NOTE | 2025-02-25 12:51 | DVHPN2 ---
Subjective in bed HR better controlled Reviewed: H&P Changes from previous H/P or p: No Changes Objective Vitals Vital Signs Date Time Temp Pulse Resp B/P (MAP) Pulse Ox O2 Delivery O2 Flow Rate FiO2 02/25/25 12:00 105 139/91 02/25/25 12:00 97.8 18 97 97.8 02/25/25 10:00 Room Air* 0 21 Intake/Output Intake and Output 02/25/25 07:00 Intake Total 1679.58 ml Output Total 280 ml Balance 1399.58 ml Intake IV Total 1679.58 ml Output Urine Total 280 ml General Appearance: Alert, Oriented X3 Cardiovascular: Regular rate, Normal S1, Normal S2 Abdomen: Normal bowel sounds Medications Current Medications Medications Dose Ordered Sig/Nasrin Route Start Time Stop Time Status Last Admin Dose Admin Amiodarone HCl 250 ml @ 16.66 mls/ hr Q15H1M IV 02/24/25 18:16 02/25/25 09:30 16.66 MLS/HR Cefepime HCl 50 ml @ 50 mls/hr BID IV 02/24/25 22:00 02/25/25 10:47 50 MLS/HR Docusate Sodium 100 mg BIDPRN PRN PO 02/24/25 12:30 Acetaminophen 650 mg Q6HP PRN PO 02/24/25 12:30 Acetaminophen/ Hydrocodone Bitart 1 tab Q4HP PRN PO 02/24/25 12:30 Hydromorphone HCl 0.5 mg Q4HP PRN IV 02/24/25 12:30 Ondansetron HCl 4 mg Q4HP PRN IV 02/24/25 12:30 02/24/25 16:32 4 MG Nitroglycerin 0.4 mg Q5MINP PRN SL 02/24/25 12:30 Morphine Sulfate 2 mg Q30M PRN IV 02/24/25 12:30 Warfarin Sodium RX PROTOCOL PER PHARMACY PO 02/24/25 14:00 Heparin Sodium/ Dextrose 250 ml @ 11 mls/hr [id number] IV 02/24/25 23:30 02/24/25 23:30 11 MLS/HR Metoprolol Tartrate 100 mg BID PO 02/25/25 10:00 02/25/25 10:47 100 MG Laboratory Results Laboratory Tests 02/25/25 04:38 Chemistry Test 02/25/25 04:38 Albumin 4.1 g/dL (3.2-4.8) Calcium Level 8.8 mg/dL (8.7-10.4) Magnesium Level 2.0 mg/dL (1.6-2.6) Total Protein 6.5 g/dL (5.7-8.2) Coagulation Test 02/24/25 13:18 02/24/25 22:10 02/25/25 04:38 02/25/25 10:48 Prothrombin Time 13.6 sec (9.3-11.8) H 15.7 sec (9.3-11.8) H 18.5 sec (9.3-11.8) H Prothrombin Time INR 1.32 (0.9-1.15) H 1.55 (0.9-1.15) H 1.86 (0.9-1.15) H Activated Partial Thromboplast Time 27.1 SEC (24.5-34.5) 41.6 SEC (24.5-34.5) H 56.3 SEC (24.5-34.5) H 54.7 SEC (24.5-34.5) H LFT Test 02/25/25 04:38 Alanine Aminotransferase (ALT) 17 U/L (7-40) Alkaline Phosphatase 43 U/L (46-116) L Aspartate Amino Transferase (AST) 29 U/L (13-40) Total Bilirubin 1.1 mg/dL (0.2-1.0) H HgA1c, TSH Test 02/24/25 13:18 Thyroid Stimulating Hormone (TSH) 0.74 uIU/mL (0.55-4.78) Urinalysis Test 02/24/25 11:13 Urine Color Yellow (Yellow) Urine Clarity Turbid (Clear) H Urine pH 6.0 (5.0-9.0) Urine Specific [place] 1.022 (1.001-1.035) Urine Protein 2+ (Negative) H Urine Ketones Negative (Negative) Urine Blood 3+ /uL (Negative) H Urine Nitrite Negative (Negative) Urine Bilirubin Negative (Negative) Urine Urobilinogen Normal mg/dL (Negative) Urine Leukocyte Esterase 2+ /uL (Negative) Urine RBC 1044 /hpf (0 - 3) Urine Microscopic WBC 75 /HPF (0-3) H Urine Squamous Epithelial Cells Few /hpf (<5) Urine Bacteria Few /hpf (None Seen) H Urine Yeast (Budding) Occasional /hpf (None Urine Glucose 2+ mg/dL (Normal) H Assessment/Plan Assessment/Plan AFib with RVR Chest pain Continue amiodarone drip oral metoprolol heparin drip echocardiogram cardiology on consult Plan discussed with: Patient Date of Service: Feb 25, 2025 Billing Provider: ANAND LAUREANO MD Common Visit Codes: [id number] INP/OBS CARE(HIGH) ANAND LAUREANO MD Feb 25, 2025 12:51
[2025-02-25] MEDS ORDERED: WARFARIN SODIUM 1 MG TAB PO ONE (17:00)
--- NOTE | 2025-02-25 20:24 | DVHSR ---
APPROVED REPORT EXAM: Two-dimensional and M-mode echocardiogram with Doppler and color Doppler. Blood Pressure: 126/73 mmHg INDICATION Atrial Fibrillation W/ RVR Surgery/Intervention Valve Replacement: RISK FACTORS Height: 5' 8", Weight: 161 DIMENSIONS LVDd 3.9 (3.8-5.7cm) LA (2D) 4.3 (1.9-4.0cm) Aortic Root (2.0-3.7cm) LVDs 3.2 (2.5-4.0cm) LA (MM) (1.9-4.0cm) Aortic Cusp Exc (1.5-2.0cm) EF (%) 37.0 (55-70%) Rt. Atrium 3.8 (1.9-4.0cm) Asc. Aorta 4.8 cm IVSd 1.2 (0.7-1.1cm) RV (D) (1.8-2.4cm) PWd 1.2 (0.7-1.1cm) Mitral Valve Mitral Mitral Stenosis E wave 1.50m/s MV Mean GR. mmHg E/A ratio 0.0 2D MVA cm2 Aortic Valve Aortic Valve Aortic Stenosis V1 0.67m/s AO Mean GR. 5mmHg V2 1.50m/s AO Peak GR. 10mmHg Pulmonic Valve V2 0.70m/s Tricuspid Valve TR Velocity 2.50m/s RVSP 35mmHg Other Information Quality : Rhythm : Atrial Fibrillation Conclusion DILATED ALL CARDIAC CHAMBERS LV EF IS 37% AND IS REDUCED GLOBAL HYPOKINESIS OF ALL CARDIAC CHAMBERS DILATED CARDIOMYOPATHY POSTERIOR MITRAL LEAFLET IS VERY HEAVILY CALCIFIED MODERATE DEGREE TR REMARKABLY DILATED LA AND RA NO EFFUSION
--- NOTE | 2025-02-25 22:05 | DVHINCON2 ---
Date Seen: Feb 25, 2025 Referring Physician Brian Reason for Consultation Atrial Fibrillation with RVR History of Present Illness This is a 69-year-old male with PMH of diabetes, CAD, HLD, HTN, atrial fibrillation on warfarin, aortic valve replacement bioprosthetic 2013, bladder cancer presents to the hospital with chest pressure, palpitations. Patient recently underwent cystoscopy for bladder cancer though needed to have a 2nd procedure done. Patient has been off his warfarin for 5 days prior. During procedure patient had increased chest pressure noted his heart rate to be significantly elevated having some palpitations. Patient found to be in RVR and was transferred to the hospital. EKG reviewed and shows atrial flutter at 134 beats per minute, INR initially 1.19, now 1.86 this morning. Troponin negative x3. Normal BNP. Chest x-ray showed NAD. Patient was admitted to the hospital. I am asked to consult on this patient. Past Medical History As stated above Past Surgical History Aortic valve replacement with bioprosthetic [employer] valve 25 mm model 3300 TFX Allergies: Coded Allergies: NO KNOWN ALLERGIES (Unverified , 08/27/15) Current Medications Current Medications Medications (Trade) Dose Ordered Sig/Nasrin Route PRN Reason Start Time Stop Time Status Last Admin Amiodarone HCl 250 ml @ 16.66 mls/ hr Q15H1M IV 02/24/25 18:16 02/25/25 09:30 Cefepime HCl 50 ml @ 50 mls/hr BID IV 02/24/25 22:00 02/25/25 10:47 Heparin Sodium/ Dextrose 250 ml @ 11 mls/hr [id number] IV 02/24/25 23:30 02/24/25 23:30 Metoprolol Tartrate (Lopressor Tablet) 100 mg BID PO 02/25/25 10:00 02/25/25 10:47 Review of Systems Constitutional: No: Fever, Chills, Sweats, Weakness, Malaise, Other Eyes: No: Pain, Vision change, Conjunctivae inflammation, Eyelid inflammation, Other, Redness ENT: No: Ear pain, Ear discharge, Nose pain, Nose discharge, Nose congestion, Mouth pain, Mouth swelling, Throat pain, Throat swelling, Other Respiratory: No: Cough, Dry, Shortness of breath, SOB with exertion, Wheezing, Hemoptysis, Pleuritic Pain, Sputum, Wheezing, Other Cardiovascular: ; No: Chest Pain Palpitations, Orthopnea, Paroxysmal Noc. Dyspnea, Edema, Lt Headedness, Other Gastrointestinal: No: Nausea, Vomiting, Abdominal Pain, Diarrhea, Constipation, Melena, Hematochezia, Other Genitourinary: No Dysuria, No Frequency, No Incontinence, No Hematuria, No Retention, No Other Musculoskeletal: neck pain; No: other, shoulder pain, arm pain, back pain, hand pain, leg pain, foot pain Skin: No: Rash, Lesions, Jaundice, Bruising, Other Neurological: Other (Dizziness, headache.); No: Weakness, Numbness, I ncoordination, Change in speech, Confusion, Seizures Vital Signs Vital Signs Date Time Temp Pulse Resp B/P (MAP) Pulse Ox O2 Delivery O2 Flow Rate FiO2 02/25/25 12:00 105 139/91 02/25/25 12:00 97.8 18 97 97.8 02/25/25 10:00 Room Air* 0 21 Physical Exam GENERAL: Alert and oriented x 3. No acute distress. EYES: PERRL, EOMI. Anicteric. HENT: Moist mucous membranes. LUNGS: Clear to auscultation bilaterally. CARDIOVASCULAR: Irregular rate and rhythm. ABDOMEN: Soft, nontender and nondistended. EXTREMITIES: No edema. NEUROLOGIC: No focal neurological deficits. SKIN: Warm, dry. Labs/Diagnostic Data Labs Test 02/25/25 10:48 02/25/25 04:38 02/24/25 13:18 02/24/25 11:13 Range/Units Prothrombin Time 18.5 H 9.3-11.8 sec Prothrombin Time INR 1.86 H 0.9-1.15 Activated Partial Thromboplast Time 54.7 H 24.5-34.5 SEC White Blood Count 7.4 4.4-10.8 10^3/uL Red Blood Count 3.99 L 4.5-5.90 10^6/uL Hemoglobin 12.4 L 13.5-17.5 g/dL Hematocrit 36.6 L 41.0-53.0 % Mean Corpuscular Volume 91.8 80.0-100.0 fL Mean Corpuscular Hemoglobin 31.1 28.0-32.0 pg Mean Corpuscular Hemoglobin Concent 33.9 32.0-36.0 g/dL Red Cell Distribution Width 15.3 H 11.8-14.3 % Platelet Count 167 140-450 10^3/uL Mean Platelet Volume 8.6 6.9-10.8 fL Neutrophils (%) (Auto) 74.9 37.0-80.0 % Lymphocytes (%) (Auto) 21.9 10.0-50.0 % Monocytes (%) (Auto) 2.2 0.0-12.0 % Eosinophils (%) (Auto) 0.3 0.0-7.0 % Basophils (%) (Auto) 0.7 0.0-2.0 % Neutrophils # (Auto) 5.5 1.6-8.6 10 ^3/uL Lymphocytes # (Auto) 1.6 0.4-5.4 10 ^3/uL Monocytes # (Auto) 0.2 0-1.3 10 ^3/uL Eosinophils # (Auto) 0 0-0.8 10 ^3/uL Basophils # (Auto) 0.1 0-0.2 10 ^3/uL Nucleated Red Blood Cells 0.0 % Sodium Level 140 136-145 mmol/L Potassium Level 4.1 3.5-5.1 mmol/L Chloride Level 108 H 98-107 mmol/L Carbon Dioxide Level 24 20-31 mmol/L Anion Gap 8 5-15 Blood Urea Nitrogen 7 L 9-23 mg/dL Creatinine 0.84 0.700-1.30 mg/dL Glomerular Filtration Rate Calc 94 >90 mL/min BUN/Creatinine Ratio 8.3 L 10.0-20.0 Serum Glucose 115 H 74-106 mg/dL Calcium Level 8.8 8.7-10.4 mg/dL Magnesium Level 2.0 1.6-2.6 mg/dL Total Bilirubin 1.1 H 0.2-1.0 mg/dL Aspartate Amino Transferase (AST) 29 13-40 U/L Alanine Aminotransferase (ALT) 17 7-40 U/L Alkaline Phosphatase 43 L 46-116 U/L Total Protein 6.5 5.7-8.2 g/dL Albumin 4.1 3.2-4.8 g/dL Troponin I High Sensitivity 6 </=54 ng/L Thyroid Stimulating Hormone (TSH) 0.74 0.55-4.78 uIU/mL Urine Color Yellow Yellow Urine Clarity Turbid H Clear Urine pH 6.0 5.0-9.0 Urine Specific [place] 1.022 1.001-1.035 Urine Protein 2+ H Negative Urine Ketones Negative Negative Urine Blood 3+ H Negative /uL Urine Nitrite Negative Negative Urine Bilirubin Negative Negative Urine Urobilinogen Normal Negative mg/dL Urine Leukocyte Esterase 2+ Negative /uL Urine RBC 1044 0 - 3 /hpf Urine Microscopic WBC 75 H 0-3 /HPF Urine Squamous Epithelial Cells Few <5 /hpf Urine Bacteria Few H None Seen /hpf Urine Yeast (Budding) Occasional None Seen /hpf Urine Glucose 2+ H Normal mg/dL Test 02/24/25 08:50 Range/Units B-Type Natriuretic Peptide 44.29 0-100 pg/mL Assessment Atrial fibrillation/flutter with episode of RVR. Chest pain/pressure. HTN. HX aortic valve replacement. Plan/Recommendation I agree with your ongoing assessment and care of plan. Patient has been seen by Gopal Tran NP on my behalf, him and I discussed the plan with the patient. Continue with amiodarone, metoprolol resumed. Continue with rate control. Follow up echo if no significant abnormalities continue with outpatient cardiology follow up per patient request. Continue warfarin currently on heparin for bridge. Monitor for bleeding given recent cystoscopy for bladder CA. Patient would like to continue with outpatient workup at [facility] for which has upcoming appointment with Cardiology. Resumed on metoprolol. Additional plan as per the hospital course. Plan discussed with: Patient NYHA Physical activity limitations: Class2(Slight)fatigue,sob Date of Service: Feb 25, 2025 Billing Provider: SHEREEN DUQUE MD Cardiology Common Codes: [id number] INP/OBS CARE (High) Cardiology Consultation Codes: [id number] CONSULT <45MIN SHEREEN DUQUE MD Feb 25, 2025 14:14
[2025-02-25] MEDS ORDERED: MELATONIN 5 MG TAB PO ONE (23:30)
--- NOTE | 2025-02-26 11:11 | ECG ---
[facility] Test Date: 2025-02-24 Test Time: 10:21:24 Pat Name: BAYLEE WHITNEY Department: Room: [address] [place] [address] Gender: M Egg Tester: RISHABH : [id number] Requested By: SHAVON DENNEY Order Number: [id number] Reading MD: Lexx Woody Measurements Intervals [place] Rate: 128 P: 0 [place]: 0 QRS: 248 QRSD: 93 T: 58 QT: 318 QTc: 464 Interpretive Statements Atrial flutter with predominant 2:1 AV block Left anterior fascicular block Electronically Signed On 02-27-2025 17:50:16 PST by Lexx Woody Please click the below link to view image of tracing.
== END 2025-02-25 16:00 | disposition left against medical advice (07) | DRG 310 ==
LOC: ER 08:08 → OVERFLOW 12:28
PROVIDERS: ADMIT Internal Medicine; ATTEND Internal Medicine
DX: I48.91 Unspecified atrial fibrillation (principal); Z95.3 Presence of xenogenic heart valve; E11.9 Type 2 diabetes mellitus without complications; Z79.01 Long term (current) use of anticoagulants; I10 Essential (primary) hypertension; I48.92 Unspecified atrial flutter; I25.10 Atherosclerotic heart disease of native coronary artery without angina pectoris; E78.5 Hyperlipidemia, unspecified; Z53.29 Procedure and treatment not carried out because of patient's decision for other reasons; R07.89 Other chest pain; Z85.51 Personal history of malignant neoplasm of bladder; Z79.899 Other long term (current) drug therapy
CPT/HCPCS: 36415; 71045; 80048; 80053; 81001; 83735; 83880; 84439; 84443; 84484; 85025; 85610; 85730; 93005; 93306; 96365; 99291; G0378; J0692; J2405